=== PATIENT | male | born 1965 | race Caucasian/White ===

== ENCOUNTER 2017-04-01 20:34 | Emergency (ER) | payer MEDICARE, MEDICAID, SELFPAY ==
[2017-04-01 20:34] VITALS: BP 138/89; PULSE 82; RESP 20; TEMP 36.6; O2SAT 96; BMI 44.5
[2017-04-01 20:56] VITALS: BP 143/81; PULSE 68; RESP 14; TEMP 36.7; O2SAT 97
[2017-04-01 21:06] LABS: Bedside Glucose 91 mg/dL (70-110)
--- NOTE | 2017-04-01 21:06 | EKG12_ITS ---
Test Reason : CP Blood Pressure : / mmHG Vent. Rate : 067 BPM Atrial Rate : 067 BPM P-R Int : 144 ms QRS Dur : 094 ms QT Int : 420 ms P-R-T Axes : 044 042 003 degrees QTc Int : 443 ms Normal sinus rhythm with sinus arrhythmia Normal ECG Confirmed by CANDELARIA LOCK, JEFF ([id number]), tape editor HENRIK BAIG ([id number]) on 04/06/2017 4:11:09 PM Referred By: ALAYNA Confirmed By:JEFF GAONA MD
--- NOTE | 2017-04-01 21:08 | ED.DCSUM_ITS ---
- ER Visit Summary Date of Service: 04/01/17 Chief Complaint: Low blood sugars History of Present Illness: The patient is a 51 M history of insulin-dependent diabetes, cardiac stent, CAD and [place] and anemia. Patient states that he is at low blood sugars intermittently and high blood sugars last 4 days. He has had blood sugars in the 40s and also in the 400s. He is also had some mild nausea vomiting. Intermittent chest pain. Denies fever. Physical Examination: Well-appearing middle-age male no acute distress. Vital signs are stable he is afebrile. He does not look septic or toxic. He is in no acute distress. Pulse ox 96% on room air no signs of hypoxia. HEENT exam normal. Neck nontender no JVD no lymphadenopathy. Lungs clear to auscultation bilaterally. Heart regular rate and rhythm no murmur. Abdomen is obese but soft and nontender. No peritoneal signs. He is moving all 4 extremities. Calves are nontender without edema or cords. Neurologically is awake and alert with no focal motor deficits. NIH is 0. Test Results: CBC shows a chronic anemia with a hemoglobin 10.9 which is his baseline. Normal white count. BMP unremarkable. Troponin normal. Chest x- ray no acute abnormality read by myself. EKG sinus rhythm rate is 67 with a sinus arrhythmia. But no signs of [place] or ischemia. Emergency Department Course and Treatment: Patient with intermittent low and high blood sugars with atypical chest pain will be worked up. Treatment Plan: Repeat exam at 2155 patient is doing well. He denies any symptoms. His ex- who is actually his power of managing attorney that he lives with is here in the ER as a patient also. She discussed with me his care and wanted to take him home. She states she has not been complaining of any chest pain recently. She states that he is a hypochondriac. She also stated not to give him any pain medications because he seeks pain meds from time to time. Patient himself is doing well and is comfortable being discharged home. Disposition: Discharge Impression: Transient hypoglycemia resolved History of insulin-dependent diabetes Atypical chest pain of uncertain etiology This note was generated with [employer] dictation software. It may contain incorrect words, spelling, and punctuation that were not noted in review of the chart prior to signing ED Disposition - Plan for ED Patient: Chief Complaint: Chest Pain Referrals: [facility] Doctor,Out of [Primary Care Provider] -
[2017-04-01] MEDS: Aspirin 81 MG TAB.CHEW 324 MG PO (21:15)
--- NOTE | 2017-04-01 21:15 | RAD_ITS ---
STUDY: X-RAY CHEST REASON FOR EXAM: Male, 51 years old. Dizziness, hypoglycemia TECHNIQUE: A single frontal view of the chest was obtained. COMPARISON: March 02, 2017 FINDINGS: The lungs are underaerated. There are no focal airspace opacities. There is no demonstrated pleural abnormality. The cardiac silhouette is normal in size. The mediastinum and hilar regions are unremarkable. Normal visualized pulmonary arteries. Normal visualized aortic arch and descending thoracic aorta. The thoracic spine is unremarkable. The visualized ribs, clavicles, and shoulders are unremarkable. There is no demonstrated abnormality of the visualized upper abdomen. RAD/Chest 1 View (Portable) IMPRESSION: No acute cardiopulmonary abnormalities or changes. Electronically Signed: Jessenia Rock MD at 21:46 EST Tel Direct: [phone], Service support ,
[2017-04-01 21:17] LABS: Absolute Neutrophil Count 3.2 X10^3/uL (2.0-7.7); Basophil# 0.03 X10^3/uL; Basophil% 0.6 % (0-1); Eosinophil# 0.27 X10^3/uL; Hematocrit 36.5 % (40-54); Hemoglobin 10.9 g/dl (13.0-16.5); Lymphocyte % 25.7 % (19-41); Mean Corp Hgb Conc 29.9 g/gl (32-36); Mean Corpuscular Hgb 23.2 pg (27.0-32.0); Mean Corpuscular Volume 77.7 fL (80-94); Monocyte# 0.55 X10^3/uL; Monocyte% 10.1 % (0-10); Neutrophil # 3.18 X10^3/uL (2.7-7.7); Neutrophil % 58.4 % (47-70); Platelet Count 197 K/mm3 (150-450); RBC Distribution Width CV 17.9 % (11.6-14.6); RBC Distribution Width SD 50.9 fl (35.1-43.9); White Blood Count 5.4 K/mm3 (4.4-11.0)
[2017-04-01 21:22] LABS: POSITIVE COUNT NO; POSITIVE DIFFERENTIAL NO; POSITIVE MORPHOLOGY NO
[2017-04-01 21:29] LABS: Anion Gap 7 (5-15); BUN 23 mg/dL (7-18); BUN/Creat Ratio 24.5 RATIO (10-20); Calcium,Total 9.1 mg/dL (8.5-10.1); Chloride 106 mmol/L (98-107); Creatinine, Serum 0.94 mg/dL (0.70-1.30); EST Glomerular Filtration Rate 90 mL/min (>60); Est Glom Filt Rate - Afr Amer 108 mL/min (>60); Estimated Creatinine Clearance 94.92 ml/min; Glucose 82 mg/dL (70-110); Potassium 3.6 mmol/L (3.5-5.1); Sodium Level 142 mmol/L (136-145)
--- NOTE | 2017-04-01 22:05 | DCINST.ED_ITS ---
ED Disposition - Plan for ED Patient: Disposition: Home or Assisted Living Chief Complaint: Chest Pain Instructions: ED Chest Pain Atypical Unkn Cause, Hypoglycemia (Low Blood Sugar) Referrals: [facility] Doctor,Out of [Primary Care Provider] - As soon as possible Additional Instructions: Return to ER feeling worse. Watch her blood sugars closely and should be taking your blood sugar at least twice daily if not more frequently. Take your blood sugar before going to bed tonight.
[2017-04-01 22:08] VITALS: BP 138/89; PULSE 66; RESP 20; O2SAT 94
== END 2017-04-01 22:08 | disposition home or self-care (01) ==
PROVIDERS: Emergency Provider Emergency Medicine
DX: E11.649 Type 2 diabetes mellitus with hypoglycemia without coma (principal); R07.89 Other chest pain; I25.10 Atherosclerotic heart disease of native coronary artery without angina pectoris; I25.2 Old myocardial infarction; Z79.4 Long term (current) use of insulin
CPT/HCPCS: 71045; 80048; 82962; 84484; 85025; 93005; 99285; A4216

== ENCOUNTER 2017-12-19 16:39 | Emergency (ER) | payer MEDICAID, MEDICARE, SELFPAY ==
[2017-12-19 16:39] VITALS: BP 122/94; PULSE 80; RESP 79; O2SAT 99
[2017-12-19 16:42] VITALS: BP 151/97; PULSE 65; RESP 13; TEMP 36.6; O2SAT 96; BMI 40.4
--- NOTE | 2017-12-19 17:03 | EKG12_ITS ---
Test Reason : CP Blood Pressure : / mmHG Vent. Rate : 063 BPM Atrial Rate : 063 BPM P-R Int : 134 ms QRS Dur : 092 ms QT Int : 424 ms P-R-T Axes : 045 024 024 degrees QTc Int : 433 ms Normal sinus rhythm Normal ECG Confirmed by PATTIE LOCK, NEVILLE ([id number]), running instructor STEPHEN MCKEON ([id number]) on 12/22/2017 11:17:51 AM Referred By: SHANTHI Confirmed By:NEVILLE BLANKENSHIP MD
--- NOTE | 2017-12-19 17:03 | CT_ITS ---
STUDY: CT ABDOMEN AND PELVIS WITHOUT CONTRAST REASON FOR EXAM: Male, 52 years old. Abdominal pain RADIATION DOSAGE (If Supplied By Facility): CTDIvol = ( 22.57 ) mGy, DLP = ( 1297.24 ) mGycm TECHNIQUE: Transaxial images were obtained from the dome of the diaphragm to the symphysis pubis without oral contrast, and without intravenous contrast. Sagittal and coronal images were reconstructed. # of Images: 544 Individualized dose optimization techniques were used for this CT. COMPARISON: 02/04/2017 FINDINGS: The visualized lung bases are unremarkable. The visualized portions of the heart are within normal limits. Normal liver. There is non-visualization of the gallbladder, which may be secondary to either contraction or a prior cholecystectomy. Normal spleen. Normal pancreas. Normal bilateral adrenal glands. Normal right kidney. Normal left kidney. There is a small hiatal hernia. Normal small intestine. There are multiple colonic diverticula consistent with diverticulosis. There are surgical clips in the region of the appendix consistent with a prior appendectomy. Normal abdominal aorta. Normal inferior vena cava. Normal retroperitoneum. Normal urinary bladder. There are prostatic calcifications. There is a small umbilical hernia containing fat. There are diffuse degenerative changes of the visualized lumbar spine. CT/Abdomen/Pelvis without Cont IMPRESSION: No acute findings Electronically Signed: Junior Arcos DO at 18:39 EDT Tel , Service support ,
--- NOTE | 2017-12-19 17:03 | RAD_ITS ---
STUDY: X-RAY CHEST REASON FOR EXAM: Male, 52 years old. Chest and abdominal pain TECHNIQUE: PA and lateral views of the chest. # of Images: 2 COMPARISON: 04/01/2017 FINDINGS: The lungs are clear and expanded. There is no demonstrated pleural abnormality. There is mild cardiac enlargement. Normal mediastinum and felicia. Normal visualized pulmonary arteries. Normal visualized aortic arch and descending thoracic aorta. Normal visualized thoracic spine. Normal visualized ribs, clavicles, and shoulders. There is no demonstrated abnormality of the visualized soft tissue structures of the upper abdomen. RAD/Chest PA and Lateral IMPRESSION: No acute cardiopulmonary disease. Electronically Signed: Junior Arcos DO at 18:40 EDT Tel , Service support ,
[2017-12-19 17:37] LABS: Absolute Lymphocyte Count 1.66 X10^3/ul (0.83-4.51); Absolute Neutrophil Count 1.7 X10^3/uL (2.0-7.7); Basophil# 0.03 X10^3/uL; Basophil% 0.8 % (0-1); Eosinophil# 0.11 X10^3/uL; Eosinophils% 2.8 % (0-5); Hematocrit 41.8 % (40-54); Hemoglobin 13.3 g/dl (13.0-16.5); Lymphocyte # 1.66 X10^3/ul (4.0); Lymphocyte % 42.8 % (19-41); Mean Corp Hgb Conc 31.8 g/gl (32-36); Mean Corpuscular Hgb 28.2 pg (27.0-32.0); Mean Corpuscular Volume 88.6 fL (80-94); Mean Platelet Vol. 10.8 fl (6.2-12.0); Monocyte# 0.34 X10^3/uL; Monocyte% 8.8 % (0-10); Neutrophil # 1.73 X10^3/uL (2.7-7.7); Neutrophil % 44.5 % (47-70); Platelet Count 118 K/mm3 (150-450); RBC Distribution Width CV 14.2 % (11.6-14.6); RBC Distribution Width SD 46.1 fl (35.1-43.9); Red Blood Count 4.72 M/mm3 (4.6-6.2); White Blood Count 3.9 K/mm3 (4.4-11.0)
[2017-12-19 17:38] LABS: POSITIVE COUNT NO; POSITIVE DIFFERENTIAL NO; POSITIVE MORPHOLOGY NO
[2017-12-19] MEDS: 0.9% Normal Saline 1,000 ML 1000 ML IV (17:48)
[2017-12-19] MEDS: Morphine 4 MG/ML Syringe IV (17:48)
[2017-12-19] MEDS: Ondansetron 4 MG/2 ML Vial IV (17:48)
[2017-12-19 18:00] LABS: AST(SGOT) 38 U/L (15-37); Alanine Aminotransfer ALT/SGPT 34 U/L (16-61); Albumin, Serum 3.4 g/dL (3.2-5.0); Alkaline Phosphatase 88 U/L (45-117); Anion Gap 7 (5-15); BUN 17 mg/dL (7-18); BUN/Creat Ratio 19.9 RATIO (10-20); Calcium,Total 8.6 mg/dL (8.5-10.1); Chloride 103 mmol/L (98-107); Creatinine, Serum 0.85 mg/dL (0.70-1.30); EST Glomerular Filtration Rate 100 mL/min (>60); Est Glom Filt Rate - Afr Amer 120 mL/min (>60); Estimated Creatinine Clearance 103.77 ml/min; Globulin 3.5 g/dL (2.2-4.2); Glucose 312 mg/dL (74-106); Lipase 135 U/L (73-393); Potassium 4.6 mmol/L (3.5-5.1); Protein, Total 6.9 g/dL (6.4-8.2); Sodium Level 135 mmol/L (136-145)
[2017-12-19 18:39] VITALS: BP 154/91; PULSE 66; RESP 15; O2SAT 96
[2017-12-19 19:24] LABS: Mucous, Urine 0 SEEN /hpf (<or=2+); Red Blood Cells-Urine 0 SEEN /hpf (0-5)
[2017-12-19 19:25] VITALS: BP 144/94; PULSE 68; RESP 15; O2SAT 99
[2017-12-19 19:26] LABS: Color, Urine Yellow (Yellow); Glucose, Dipstick 1000 mg/dl (Normal); Ketone-Dipstick 15 mg/dl (Negative); Leukocyte Esterase-Dipstick 500 /ul (Negative); Nitrite-Dipstick Negative (Negative); Occult Blood-Urine 25 /ul (Negative); Protein-Dipstick 15 mg/dl (Negative); Specific Gravity, Urine 1.025 (1.002-1.030); Urine Bilirubin Dipstick Negative (Negative); Urine Clarity Sl. Cloudy (Clear); Urine Urobilinogen 1 mg/dl (Normal)
[2017-12-19 19:32] LABS: Squamous Epithelial Cells - UA 0-5 SEEN /hpf (0-5); White Blood Cells 10-25 SEEN /hpf (0-5)
[2017-12-19 19:33] LABS: Bacteria 1+ /hpf (None Seen)
--- NOTE | 2017-12-19 20:06 | ED.VISSUMM ---
- ER Visit Summary Date of Service: 12/19/17 Chief Complaint: Chest pain and abdominal pain History of Present Illness: The patient is a 52 M who presents with abdominal pain and chest pain. He states about an hour before presentation he developed lower abdominal pain with radiation into his testicles. He noticed some blood in his underwear. He also complains of sharp right-sided chest pain. He states that over the last couple of days he has had some intermittent nausea and vomiting at about 1 week of diarrhea. He reports sweats without any fevers. He reports feeling short of breath. Physical Examination: Afebrile vitals are unremarkable Patient resting comfortably no distress Moist mucous members Heart regular rate and rhythm Lungs are clear Abdomen soft he does have some lower abdominal tenderness without guarding without rebound Alert Test Results: EKG shows normal sinus rhythm at a rate of 63. Laboratory studies are notable for white blood cell count of 3.9 and platelets of 118. Glucose is 312. Hepatic function lipase normal. Troponin negative. Urinalysis is consistent with infection with 500 leukocyte esterase and 10-25 WBCs. Chest x-ray shows no acute disease. CT the abdomen shows no acute findings. Emergency Department Course and Treatment: Patient was initially treated with IV fluids morphine and Zofran. In regards to his chest pain on review of prior records the patient has had multiple presentations with similar symptoms with an unremarkable workup. I do not believe this is due to cardiac ischemia given normal EKG negative troponin and atypical description of symptoms. He does have a UTI. He will be treated with oral antibiotics. I see no indication for hospitalization. He understands to return for new or worsening symptoms and will follow-up as an outpatient. His mild thrombocytopenia is new but I believe this can be followed up as an outpatient. Treatment Plan: [] Disposition: Discharge Impression: Abdominal pain Chest pain Thrombocytopenia. This note was generated with [employer] dictation software. It may contain incorrect words, spelling, and punctuation that were not noted in review of the chart prior to signing ED Disposition - Plan for ED Patient: Chief Complaint: Chest Pain Referrals: Brooks Kaufman [Primary Care Provider] -
--- NOTE | 2017-12-19 20:09 | ED.DCSUM_ITS ---
- ER Visit Summary Date of Service: 12/19/17 Chief Complaint: Chest pain and abdominal pain History of Present Illness: The patient is a 52 M who presents with abdominal pain and chest pain. He states about an hour before presentation he developed lower abdominal pain with radiation into his testicles. He noticed some blood in his underwear. He also complains of sharp right-sided chest pain. He states that over the last couple of days he has had some intermittent nausea and vomiting at about 1 week of diarrhea. He reports sweats without any fevers. He reports feeling short of breath. Physical Examination: Afebrile vitals are unremarkable Patient resting comfortably no distress Moist mucous members Heart regular rate and rhythm Lungs are clear Abdomen soft he does have some lower abdominal tenderness without guarding without rebound Alert Test Results: EKG shows normal sinus rhythm at a rate of 63. Laboratory studies are notable for white blood cell count of 3.9 and platelets of 118. Glucose is 312. Hepatic function lipase normal. Troponin negative. Urinalysis is consistent with infection with 500 leukocyte esterase and 10-25 WBCs. Chest x- ray shows no acute disease. CT the abdomen shows no acute findings. Emergency Department Course and Treatment: Patient was initially treated with IV fluids morphine and Zofran. In regards to his chest pain on review of prior records the patient has had multiple presentations with similar symptoms with an unremarkable workup. I do not believe this is due to cardiac ischemia given normal EKG negative troponin and atypical description of symptoms. He does have a UTI. He will be treated with oral antibiotics. I see no indication for hospitalization. He understands to return for new or worsening symptoms and will follow-up as an outpatient. His mild thrombocytopenia is new but I believe this can be followed up as an outpatient. Treatment Plan: [] Disposition: Discharge Impression: Abdominal pain Chest pain Thrombocytopenia. This note was generated with [employer] dictation software. It may contain incorrect words, spelling, and punctuation that were not noted in review of the chart prior to signing ED Disposition - Plan for ED Patient: Chief Complaint: Chest Pain Referrals: Brooks Kaufman [Primary Care Provider] -
--- NOTE | 2017-12-19 20:09 | ED.DEP ---
ED Disposition - Plan for ED Patient: Chief Complaint: Chest Pain Instructions: Thrombocytopenia, ED UTI Cystitis Male, ED Chest Pain Atypical Unkn Cause Prescriptions: Ciprofloxacin [Cipro] 500 mg PO BID #14 tab Referrals: Brooks Kaufman [Primary Care Provider] -
[2017-12-19] MEDS: Acetaminophen 500 MG Tablet 1000 MG PO (20:28)
[2017-12-19 20:30] VITALS: BP 119/92; PULSE 65; RESP 12; O2SAT 96
--- NOTE | 2017-12-19 20:31 | ED.RN ---
PATIENT'S IV HAD INFILTRATED WHEN I WENT TO REMOVE IT. EDEMA NOTED ABOVE THE AC SITE, GOOD PEDAL PULSES, GOOD CAPILLARY REFIL. DR. ESCOBAR MADE AWARE AND CAME IN AND CHECKED THE AREA. HE TOLD THE PATIENT THE ONLY THING THAT CAN BE DONE IS WARM COMPRESSES AND ELEVATION. THIS NURSE ALSO CALLED HIS INSURANCE FOR TRANSPORTATION.
== END 2017-12-19 20:39 | disposition home or self-care (01) ==
PROVIDERS: Emergency Provider Emergency Medicine; Family Provider Family Medicine; PCP Family Medicine
DX: R07.9 Chest pain, unspecified (principal); R10.9 Unspecified abdominal pain; D69.6 Thrombocytopenia, unspecified; R11.2 Nausea with vomiting, unspecified; R19.7 Diarrhea, unspecified; R06.00 Dyspnea, unspecified; E78.00 Pure hypercholesterolemia, unspecified; E11.9 Type 2 diabetes mellitus without complications; I25.2 Old myocardial infarction; I25.10 Atherosclerotic heart disease of native coronary artery without angina pectoris; Z95.5 Presence of coronary angioplasty implant and graft
CPT/HCPCS: 71046; 74176; 80053; 81001; 83690; 84484; 85025; 93005; 99285; J7030; A4216; J2405